=== PATIENT | female | born 1950 | race Caucasian/White ===

== ENCOUNTER → 2020-11-09 | Outpatient (CLI) | payer OTHER ==
[2020-11-10 14:12] LABS: HPV 16 Negative (Negative); HPV 18 Negative (Negative); HPV OTHER HR TYPES Negative (Negative)
== END | disposition home or self-care (01) ==
LOC: LAB 14:28 → LAB SHORT 14:28
PROVIDERS: Student in an Organized Health Care Education/Training Program
DX: Z12.4 Encounter for screening for malignant neoplasm of cervix (principal); N95.1 Menopausal and female climacteric states
CPT/HCPCS: 87624; G0145

== ENCOUNTER 2021-07-30 09:58 | Emergency (ER) | payer OTHER ==
[~2021-07-30] VITALS: Ht 152.4 cm; Wt 48.5 kg
[2021-07-30 10:26] LABS: BASOPHILS ABSOLUTE AUTO 0.06 K/mm3 (0.00-0.23); BASOPHILS PERCENT AUTO 1 % (0-2); EOSINOPHILS PERCENT AUTO 1 % (0-6); Hemoglobin 14.3 g/dL (11.5-16.0); IMMATURE GRAN ABSOLUTE AUTO 0.03 K/mm3 (0.00-0.10); IMMATURE GRAN PERCENT AUTO 0 % (0-1); LYMPHOCYTES ABSOLUTE AUTO 2.46 K/mm3 (0.84-5.20); LYMPHOCYTES PERCENT AUTO 25 % (21-46); MONOCYTES ABSOLUTE AUTO 0.54 K/mm3 (0.16-1.47); MONOCYTES PERCENT AUTO 6 % (4-13); Mean Corpuscular HGB Conc 33.3 g/dL (31.5-36.5); Mean Corpuscular Volume 93 fL (80-100); Mean Platelet Volume 8.9 fL (9.1-12.4); NEUTROPHILS ABSOLUTE AUTO 6.63 K/mm3 (1.96-9.15); NEUTROPHILS PERCENT AUTO 68 % (41-73); Platelet Count 307 K/mm3 (150-400); RDW Coefficient Variation 13.2 % (11.7-14.2); RDW Standard Deviation 45.3 fL (35.1-46.3); Red Blood Cell Count 4.61 M/mm3 (3.80-5.20); White Blood Cell Count 9.82 K/mm3 (4.00-11.30)
[2021-07-30 10:49] LABS: Alanine Aminotransfer (ALT/SGP 26 U/L (12-78); Albumin, Blood 3.8 g/dL (3.4-5.0); Alk Phos 62 U/L (50-136); Anion Gap 9 mmol/L (6-16); Aspartate Aminotrans (AST/SGOT 29 U/L (12-37); Bilirubin, Total 0.4 mg/dL (0.1-1.0); Blood Urea Nitrogen 11 mg/dL (8-24); Bun/Creatinine Ratio 17.4 (12.0-20.0); CO2, Blood 25 mmol/L (21-32); Calcium, Blood 9.4 mg/dL (8.5-10.1); Chloride, Blood 106 mmol/L (98-108); Creatinine, Blood 0.63 mg/dL (0.40-1.00); Glomerular Filtration Rate >60 (60-); Glucose, Blood 123 mg/dL (70-99); Potassium, Blood 3.5 mmol/L (3.5-5.5); Sodium, Blood 140 mmol/L (136-145); Total Protein, Blood 7.8 g/dL (6.4-8.2)
[2021-07-30] MEDS ORDERED: Norvasc5 MG PO (11:26)
== END 2021-07-30 12:18 | disposition home or self-care (01) ==
LOC: ER 09:58
PROVIDERS: Physician Assistant
DX: I10 Essential (primary) hypertension (principal)
CPT/HCPCS: 36415; 71046; 80053; 83690; 83880; 84484; 85025; 93005; 93010; 99283-25

== ENCOUNTER 2023-02-27 06:12 | Day surgery (SDC) | payer OTHER ==
[2023-02-27] VITALS (17 sets, daily range): BP systolic 94–152; BP diastolic 0–92
[~2023-02-27] VITALS: Ht 149.9 cm; Wt 59.5 kg
[~2023-02-27 06:12] MED LIST: ATOR10 PO; LISI20 PO; Norvasc5 MG PO; OMEP20ER PO; THERA-D2000 UNIT PO; Vitamin C100 M1 PO
--- NOTE | 2023-02-27 08:31 | NUR ---
02/27/23 0831 Lili Paniagua SPINAL NERVE BLOCK COMPLETED BY DR. IRENE UPON ENTRY TO THE OR. PT TOLERATED WELL.
--- NOTE | 2023-02-27 10:39 | NUR ---
PT ARRIVED TO UNIT AT APROX 1015 FROM PACU. POD 0 R CHRISTIAN W/PRINO DRESSING D/I. POLAR PACK IN PLACE. PT WIGGLES TOES ON COMMAND, REPORTS SENSATION IN BLE. DENIES PAIN AT THIS TIME. PT GIVEN CLEAR LIQUIDS, WILL ADVANCE TOLERATED.
--- NOTE | 2023-02-27 19:27 | NUR ---
SHIFT SUMMARY POD O R CHRISTIAN, PRINIO DRESSING IN PLACE TO R ANTERIOR HIP D/I. WORKED WITH PT, WALKER WITH ALL ACTIVITY. VOIDING W/O DIFFICULTY. TOLREATING REGULAR REGULAR DIET WITH NO N/V. PLAN DC HOME TOMORROW.
[2023-02-28 00:16] VITALS: BP 128/77
[2023-02-28 05:05] LABS: BASOPHILS ABSOLUTE AUTO 0.02 K/mm3 (0.00-0.23); BASOPHILS PERCENT AUTO 0 % (0-2); EOSINOPHILS PERCENT AUTO 0 % (0-6); Hemoglobin 9.9 g/dL (11.5-16.0); IMMATURE GRAN ABSOLUTE AUTO 0.09 K/mm3 (0.00-0.10); IMMATURE GRAN PERCENT AUTO 1 % (0-1); LYMPHOCYTES ABSOLUTE AUTO 1.77 K/mm3 (0.84-5.20); LYMPHOCYTES PERCENT AUTO 10 % (21-46); MONOCYTES PERCENT AUTO 10 % (4-13); Mean Corpuscular HGB 30.5 pg (26.0-34.0); Mean Corpuscular Volume 92 fL (80-100); NEUTROPHILS PERCENT AUTO 80 % (41-73); Platelet Count 253 K/mm3 (150-400); RDW Coefficient Variation 12.9 % (11.7-14.2); RDW Standard Deviation 43.5 fL (35.1-46.3); Red Blood Cell Count 3.25 M/mm3 (3.80-5.20); White Blood Cell Count 18.58 K/mm3 (4.00-11.30)
[2023-02-28 05:09] VITALS: BP 104/79
[2023-02-28 05:40] LABS: Bun/Creatinine Ratio 29.2 (12.0-20.0); Calcium, Blood 8.9 mg/dL (8.5-10.1); Creatinine, Blood 0.79 mg/dL (0.40-1.00); Magnesium, Blood 1.8 mg/dL (1.6-2.4); Potassium, Blood 4.4 mmol/L (3.5-5.5)
[2023-02-28 07:18] VITALS: BP 135/86
--- NOTE | 2023-02-28 07:32 | NUR ---
POD 1 S/P R CHRISTIAN. PT VSS T/O NIGHT. DRESSING CDI, MILD SWELLING TO HIP. PT DENIES N/T, REP SENSATION AT BASELINE. PAIN MGD PER EMAR W/REP RELIEF. PT KANNAN PO, DENIED N/V, IS VOIDING URINE W/O DIFFICULTY. PT AMB IN HALLS X2, KANNAN WELL. PLAN TO D/C HOME WHEN CLEARED BY PT.
[2023-02-28] MEDS ORDERED: ASPI81CH PO (10:42)
[2023-02-28] MEDS ORDERED: ACET500 PO (10:42)
[2023-02-28] MEDS ORDERED: OXAYDO5 M1 PO (10:43)
--- NOTE | 2023-02-28 12:02 | NUR ---
DISCHARGE PT DISCHARGED HOME FROM UNIT AT APROX 1145. PT GIVEN WRITTEN AND VERBAL DC INSTRUCTIONS AND VERBALIZED UNDERSTANDING OF THESES INSTRUCTIONS. IV REMOVED. WC TO PRIVATE VEHICLE.
== END 2023-02-28 11:45 | disposition home or self-care (01) ==
LOC: ORSCMMR 06:12 → ORD 07:30 → ORSCMMR 07:30 → SURS 10:07 → ORSCMMR 02-28 11:45 → SURS 02-28 11:45
PROVIDERS: Orthopaedic Surgery
PROC: 0SR90JA Replacement of Right Hip Joint with Synthetic Substitute, Uncemented, Open Approach (ICD-10-PCS; principal; 2023-02-27 07:30)
DX: M16.0 Bilateral primary osteoarthritis of hip (principal); E78.5 Hyperlipidemia, unspecified; I10 Essential (primary) hypertension; Z87.891 Personal history of nicotine dependence; Z79.899 Other long term (current) drug therapy
CPT/HCPCS: 36415; 72170; 80048; 83735; 85025; 97110; 97116; 97161; 97530; A9270; C1713; C1776; J0171; J0690; J0735; J1100; J1885; J2250; J2405; J2704; J2795; J3010; J7120